=== PATIENT | female | born 1985 | race Caucasian/White ===

== ENCOUNTER 2025-01-03 09:46 | Outpatient (CLI) | payer BC, SELFPAY ==
--- NOTE | ~2025-01-03 | MMUS_ITS ---
EXAMINATION: MM diagnostic ashlee BI w rowan, US breast RT limited HISTORY: Right breast lump TECHNIQUE: 3-D tomosynthesis images of the breasts were performed and synthetic 2-D images were gener ated. CAD analysis was submitted and interpreted. High resolution limited right breast ultrasound was performed. COMPARISON: None BREAST PARENCHYMAL COMPOSITION:Dense: The breasts are extremely dense, which lowers the sensitivity o f mammography. FINDINGS: MAMMOGRAPHIC FINDINGS: Parenchymal pattern appears unremarkable. No mass lesion or distortion are evident. No suspicious lyt ic or calcification. ULTRASOUND: At the 10:00 position right breast, 5 cm from nipple, there is a 3 mm anechoic structure at the skin surface, probably small sebaceous cyst versus cyst. No solid or suspicious lesions seen. IMPRESSION: No evidence for malignancy. 3 mm cyst versus sebaceous cyst in the right breast, as detailed above. BI-RADS Category 2: Benign finding(s). Reviewed, dictated and finalized at location . IMPRESSION: No evidence for malignancy. 3 mm cyst versus sebaceous cyst in the right breast, as detailed above. BI-RADS Category 2: Benign finding(s).
== END 2025-01-03 09:47 | disposition home or self-care (01) ==
PROVIDERS: PCP Nurse Practitioner Family; Visit Provider Nurse Practitioner Obstetrics & Gynecology
DX: N63.11 Unspecified lump in the right breast, upper outer quadrant (principal)
CPT/HCPCS: 76642; 77062; 77066; G0279